=== PATIENT | male | born 1950 | race Caucasian/White ===

== ENCOUNTER 2017-02-26 14:54 | Emergency (ER) | payer MEDICARE, OTHER | END 2017-02-26 16:37 | disposition other institution (70) | LOC: ER 14:54 | DX: D64.9 Anemia, unspecified (principal); R06.00 Dyspnea, unspecified; N28.9 Disorder of kidney and ureter, unspecified; I48.91 Unspecified atrial fibrillation; J44.9 Chronic obstructive pulmonary disease, unspecified; Z79.82 Long term (current) use of aspirin; Z79.899 Other long term (current) drug therapy; Z79.891 Long term (current) use of opiate analgesic; Z79.02 Long term (current) use of antithrombotics/antiplatelets | CPT/HCPCS: 99284; 99285-25 ==

== ENCOUNTER 2017-02-26 14:54 | Inpatient (IN) | payer MEDICARE, OTHER ==
[~2017-02-26] VITALS: Ht 167.6 cm; Wt 83.0 kg
[2017-02-26 15:25] LABS: BASO % 0.2 % (0.2-1.2); EOS # 0.3 10_X3_uL (0.0-0.5); EOS % 2.3 % (0.8-7.0); GRAN # 10.3 10_X3_uL (1.8-5.4); HEMATOCRIT 21.3 % (40-51); LYMPH # 1.8 10_X3_uL (1.3-3.6); LYMPH % 13.9 % (21.8-53.1); MEAN CORPUSCULAR HEMOGLOBIN 31.6 pg (27.0-33.0); MEAN CORPUSCULAR HGB CONC 31.9 g/dL (32.0-36.0); MEAN CORPUSCULAR VOLUME 99.1 fL (79-92); MEAN PLATELET VOLUME 9.3 fl (7.5-11.5); MONO # 0.6 10_X3_uL (0.3-0.8); MONO % 4.6 % (5.3-12.2); PLATELET COUNT 352 x10_3/uL (163-337); RED BLOOD COUNT 2.15 x10_6/uL (4.6-6.1); RED CELL DISTRIBUTION WIDTH 13.1 % (11.6-14.4)
[2017-02-26 15:39] LABS: HEMOGLOBIN 6.8 g/dL (13.7-17.5)
[2017-02-26 15:45] LABS: CREATININE 1.8 mg/dL (0.6-1.3); POTASSIUM 4.5 mmol/L (3.5-5.1)
[2017-02-26 18:51] LABS: BASO % 0.1 % (0.2-1.2); EOS # 0.4 10_X3_uL (0.0-0.5); EOS % 2.8 % (0.8-7.0); GRAN # 9.7 10_X3_uL (1.8-5.4); GRAN % 78.5 % (34.0-67.9); HEMATOCRIT 21.6 % (40-51); LYMPH # 1.7 10_X3_uL (1.3-3.6); LYMPH % 14.1 % (21.8-53.1); MEAN CORPUSCULAR HEMOGLOBIN 31.9 pg (27.0-33.0); MEAN CORPUSCULAR HGB CONC 31.9 g/dL (32.0-36.0); MONO # 0.6 10_X3_uL (0.3-0.8); MONO % 4.5 % (5.3-12.2); PLATELET COUNT 355 x10_3/uL (163-337); RED BLOOD COUNT 2.16 x10_6/uL (4.6-6.1); WHITE BLOOD COUNT 12.3 x10_3/uL (4.2-9.1)
[2017-02-26 18:53] LABS: HEMOGLOBIN 6.9 g/dL (13.7-17.5)
[2017-02-27 01:29] LABS: URINE BILIRUBIN NEGATIVE (NEGATIVE); URINE BLOOD NEGATIVE (NEGATIVE); URINE GLUCOSE (UA) NORMAL (NORMAL); URINE KETONE NEGATIVE (NEGATIVE); URINE LEUKOCYTE ESTERASE TRACE (NEGATIVE); URINE NITRATE NEGATIVE (NEGATIVE); URINE PROTEIN TRACE (NEGATIVE); UROBILINOGEN NORMAL mg/dL (<1.0)
[2017-02-27 01:38] LABS: URINE MUCUS TRACE; URINE RBC 0-5 /[HPF] (0-2); URINE WBC 0-5 /[HPF] (0-3)
[2017-02-27 06:49] LABS: BASO % 0.1 % (0.2-1.2); EOS # 0.3 10_X3_uL (0.0-0.5); EOS % 2.9 % (0.8-7.0); GRAN # 8.8 10_X3_uL (1.8-5.4); GRAN % 79.2 % (34.0-67.9); HEMATOCRIT 27.1 % (40-51); HEMOGLOBIN 8.8 g/dL (13.7-17.5); LYMPH # 1.4 10_X3_uL (1.3-3.6); LYMPH % 12.7 % (21.8-53.1); MEAN CORPUSCULAR HEMOGLOBIN 31.4 pg (27.0-33.0); MEAN CORPUSCULAR HGB CONC 32.5 g/dL (32.0-36.0); MEAN CORPUSCULAR VOLUME 96.8 fL (79-92); MEAN PLATELET VOLUME 9.9 fl (7.5-11.5); MONO # 0.6 10_X3_uL (0.3-0.8); MONO % 5.1 % (5.3-12.2); PLATELET COUNT 342 x10_3/uL (163-337); RED CELL DISTRIBUTION WIDTH 14.4 % (11.6-14.4); WHITE BLOOD COUNT 11.1 x10_3/uL (4.2-9.1)
[2017-02-27 07:10] LABS: ALBUMIN 3.6 gm/dL (3.4-5.0); BILIRUBIN,TOTAL 0.27 mg/dL (0.0-1.0); CALCIUM 8.7 mg/dL (8.7-10.7); CREATININE 1.7 mg/dL (0.6-1.3); POTASSIUM 4.8 mmol/L (3.5-5.1); TOTAL PROTEIN 6.1 gm/dL (6.4-8.2)
[2017-02-27 20:35] LABS: HEMATOCRIT 23.8 % (40-51)
[2017-02-27 20:46] LABS: HEMOGLOBIN 7.7 g/dL (13.7-17.5)
[2017-02-28 06:50] LABS: HEMATOCRIT 31.2 % (40-51); HEMOGLOBIN 10.1 g/dL (13.7-17.5); MEAN CORPUSCULAR HEMOGLOBIN 30.4 pg (27.0-33.0); MEAN CORPUSCULAR HGB CONC 32.4 g/dL (32.0-36.0); MEAN PLATELET VOLUME 10.3 fl (7.5-11.5); RED BLOOD COUNT 3.32 x10_6/uL (4.6-6.1); RED CELL DISTRIBUTION WIDTH 15.3 % (11.6-14.4); WHITE BLOOD COUNT 7.5 x10_3/uL (4.2-9.1)
[2017-02-28 07:05] LABS: CALCIUM 8.8 mg/dL (8.7-10.7); CARBON DIOXIDE 23 mmol/L (21-32); CREATININE 1.2 mg/dL (0.6-1.3); GLUCOSE,RANDOM 94 mg/dL (70-99); POTASSIUM 4.6 mmol/L (3.5-5.1); SODIUM 141 mmol/L (136-145)
[2017-02-28 07:12] LABS: BLOOD UREA NITROGEN 26 mg/dL (7-18)
[2017-03-01 06:49] LABS: HEMATOCRIT 35.5 % (40-51); HEMOGLOBIN 11.6 g/dL (13.7-17.5); MEAN CORPUSCULAR HEMOGLOBIN 30.7 pg (27.0-33.0); MEAN CORPUSCULAR HGB CONC 32.7 g/dL (32.0-36.0); MEAN CORPUSCULAR VOLUME 93.9 fL (79-92); MEAN PLATELET VOLUME 10.1 fl (7.5-11.5); RED BLOOD COUNT 3.78 x10_6/uL (4.6-6.1); RED CELL DISTRIBUTION WIDTH 14.9 % (11.6-14.4); WHITE BLOOD COUNT 8.5 x10_3/uL (4.2-9.1)
[2017-03-01 07:05] LABS: BLOOD UREA NITROGEN 26 mg/dL (7-18); CALCIUM 9.5 mg/dL (8.7-10.7); CARBON DIOXIDE 26 mmol/L (21-32); CREATININE 1.1 mg/dL (0.6-1.3); GLUCOSE,RANDOM 92 mg/dL (70-99); POTASSIUM 4.1 mmol/L (3.5-5.1); SODIUM 141 mmol/L (136-145)
== END 2017-03-01 10:35 | disposition home or self-care (01) | DRG 812 ==
LOC: ER 14:54 → MS 16:37
PROVIDERS: Internal Medicine; ADMIT Family Medicine
PROC: 30233N1 Transfusion of Nonautologous Red Blood Cells into Peripheral Vein, Percutaneous Approach (ICD-10-PCS; principal; 2017-02-26)
PROC: 30233N1 Transfusion of Nonautologous Red Blood Cells into Peripheral Vein, Percutaneous Approach (ICD-10-PCS; 2017-02-27)
PROC: 30233N1 Transfusion of Nonautologous Red Blood Cells into Peripheral Vein, Percutaneous Approach (ICD-10-PCS; 2017-02-28)
DX: D64.9 Anemia, unspecified (principal); J44.1 Chronic obstructive pulmonary disease with (acute) exacerbation; N17.9 Acute kidney failure, unspecified; I95.9 Hypotension, unspecified; E86.0 Dehydration; I12.9 Hypertensive chronic kidney disease with stage 1 through stage 4 chronic kidney disease, or unspecified chronic kidney disease; N18.9 Chronic kidney disease, unspecified; I48.91 Unspecified atrial fibrillation; I35.0 Nonrheumatic aortic (valve) stenosis; I07.1 Rheumatic tricuspid insufficiency; I25.10 Atherosclerotic heart disease of native coronary artery without angina pectoris; R53.1 Weakness; R00.0 Tachycardia, unspecified; R30.0 Dysuria; K59.00 Constipation, unspecified; R00.2 Palpitations; R07.9 Chest pain, unspecified; R79.89 Other specified abnormal findings of blood chemistry; Z86.73 Personal history of transient ischemic attack (TIA), and cerebral infarction without residual deficits; Z79.82 Long term (current) use of aspirin; Z79.899 Other long term (current) drug therapy; Z79.891 Long term (current) use of opiate analgesic; Z79.02 Long term (current) use of antithrombotics/antiplatelets; Z95.1 Presence of aortocoronary bypass graft; Z82.49 Family history of ischemic heart disease and other diseases of the circulatory system; Z87.891 Personal history of nicotine dependence
CPT/HCPCS: 36415; 36430; 71010; 80048; 80053; 81001; 82550; 82553; 83880; 85014; 85025; 86850; 86900; 86901; 86920; 93005; 93041; 94640; 94664; 96365; 96375; 99070; 99284; 99285-25; G0328-QW; J7040; P9016

== ENCOUNTER 2017-03-09 17:56 | Inpatient (IN) | payer MEDICARE, OTHER ==
[~2017-03-09] VITALS: Ht 172.7 cm; Wt 86.0 kg
[2017-03-09 18:40] LABS: BASO % 0.1 % (0.2-1.2); EOS % 0.2 % (0.8-7.0); GRAN # 21.7 10_X3_uL (1.8-5.4); HEMATOCRIT 30.6 % (40-51); HEMOGLOBIN 9.8 g/dL (13.7-17.5); LYMPH # 1.3 10_X3_uL (1.3-3.6); LYMPH % 5.3 % (21.8-53.1); MEAN CORPUSCULAR HEMOGLOBIN 30.4 pg (27.0-33.0); MEAN PLATELET VOLUME 9.9 fl (7.5-11.5); MONO # 1.6 10_X3_uL (0.3-0.8); MONO % 6.4 % (5.3-12.2); PLATELET COUNT 300 x10_3/uL (163-337); RED BLOOD COUNT 3.22 x10_6/uL (4.6-6.1); RED CELL DISTRIBUTION WIDTH 13.7 % (11.6-14.4)
[2017-03-09 18:43] LABS: WHITE BLOOD COUNT 24.6 x10_3/uL (4.2-9.1)
[2017-03-09 18:57] LABS: ALBUMIN 4.1 gm/dL (3.4-5.0); BILIRUBIN,TOTAL 0.44 mg/dL (0.0-1.0); CALCIUM 8.7 mg/dL (8.7-10.7); CREATININE 1.8 mg/dL (0.6-1.3); POTASSIUM 4.6 mmol/L (3.5-5.1); TOTAL PROTEIN 6.2 gm/dL (6.4-8.2)
[2017-03-10 01:56] LABS: URINE BILIRUBIN NEGATIVE (NEGATIVE); URINE BLOOD TRACE (NEGATIVE); URINE GLUCOSE (UA) NORMAL (NORMAL); URINE KETONE NEGATIVE (NEGATIVE); URINE LEUKOCYTE ESTERASE NEGATIVE (NEGATIVE); URINE NITRATE NEGATIVE (NEGATIVE); URINE PROTEIN NEGATIVE (NEGATIVE); UROBILINOGEN NORMAL mg/dL (<1.0)
[2017-03-10 01:57] LABS: URINE MUCUS TRACE; URINE RBC 0-5 /[HPF] (0-2)
[2017-03-10 06:57] LABS: HEMATOCRIT 27.3 % (40-51); HEMOGLOBIN 8.7 g/dL (13.7-17.5); MEAN CORPUSCULAR HEMOGLOBIN 31.1 pg (27.0-33.0); MEAN CORPUSCULAR HGB CONC 31.9 g/dL (32.0-36.0); MEAN CORPUSCULAR VOLUME 97.5 fL (79-92); MEAN PLATELET VOLUME 10.3 fl (7.5-11.5); RED BLOOD COUNT 2.8 x10_6/uL (4.6-6.1); RED CELL DISTRIBUTION WIDTH 13.9 % (11.6-14.4); WHITE BLOOD COUNT 15.8 x10_3/uL (4.2-9.1)
[2017-03-10 07:11] LABS: ALBUMIN 3.4 gm/dL (3.4-5.0); BILIRUBIN,TOTAL 0.34 mg/dL (0.0-1.0); CALCIUM 8.4 mg/dL (8.7-10.7); CREATININE 1.3 mg/dL (0.6-1.3); POTASSIUM 4.3 mmol/L (3.5-5.1); TOTAL PROTEIN 5.7 gm/dL (6.4-8.2)
[2017-03-10 10:45] LABS: ARTERIAL BLD GAS O2 SATURATION 79.6 % (94-98); ARTERIAL BLOOD GAS BASE EXCESS 0.6 mmol/L (-2.0-3.0); ARTERIAL BLOOD GAS HCO3 25.9 mmol/L (22-26); ARTERIAL BLOOD GAS PCO2 48.9 mmHg (35-48); ARTERIAL BLOOD GAS pH 7.34 (7.35-7.45)
[2017-03-10 10:58] LABS: CALCIUM 8.4 mg/dL (8.7-10.7); CREATININE 1.3 mg/dL (0.6-1.3); POTASSIUM 4.7 mmol/L (3.5-5.1)
--- NOTE | 2017-03-10 11:21 | NUR ---
1000 PATIENT BP 70/42, P 69, DR. RIVERA IN TO SEE PATIENT, NEW ORDERS RECIEVED, DOPAMINE DRIP STARTED AT 5MCG/KG/MIN, SEE CRITICAL CARE FLOWSHEET
--- NOTE | 2017-03-10 11:23 | NUR ---
1100 ORDERS RECIEVED TO TRANSFER PATIENT TO [facility], BP 149/81 DOPAMINE DRIP DC/D AT THIS TIME
== END 2017-03-10 13:47 | disposition short-term general hospital (02) | DRG 193 ==
LOC: ER 17:56 → MS 20:40 → UNDODEPER 03-12 20:40
PROVIDERS: General Practice; ADMIT Family Medicine
DX: J18.0 Bronchopneumonia, unspecified organism (principal); I50.23 Acute on chronic systolic (congestive) heart failure; D64.9 Anemia, unspecified; I95.9 Hypotension, unspecified; J44.9 Chronic obstructive pulmonary disease, unspecified; Z95.1 Presence of aortocoronary bypass graft; R10.9 Unspecified abdominal pain; R11.10 Vomiting, unspecified; R19.7 Diarrhea, unspecified; R53.1 Weakness; Z79.899 Other long term (current) drug therapy
CPT/HCPCS: 36415; 36600; 71010; 71020; 80048; 80053; 81001; 82150; 82803; 83605; 83690; 83880; 85025; 86738; 87040; 87070; 87205; 87400; 87449; 93005; 94640; 99070; J7050

== ENCOUNTER 2017-03-09 17:56 | Emergency (ER) | payer MEDICARE, OTHER | END 2017-03-09 20:40 | disposition other institution (70) | LOC: ER 17:56 | DX: J18.9 Pneumonia, unspecified organism (principal); I95.9 Hypotension, unspecified; D64.9 Anemia, unspecified; I50.9 Heart failure, unspecified; R11.10 Vomiting, unspecified; R10.9 Unspecified abdominal pain; R53.1 Weakness; Z79.899 Other long term (current) drug therapy | CPT/HCPCS: 96365; 96375; 99284; 99284-25 ==